=== PATIENT | female | born 1940 | race Two or more races ===

== ENCOUNTER 2025-07-25 03:19 | Emergency (ER) | payer MEDICARE, SELFPAY ==
[2025-07-25] VITALS (8 sets, daily range): BP systolic 129–169; BP diastolic 65–105; PULSE 75–101; RESP 16–28; TEMP 36.3–37; O2SAT 98–100; BMI 21.4
--- NOTE | 2025-07-25 03:35 | XR_ITS ---
EXAMINATION: AP chest single view TECHNIQUE: AP portable upright chest single view Date and time: July 25, 2025, 0423 hours INDICATION: Shortness of breath chest pain beginning today FINDINGS: No significant cardiac enlargement Mild vascular congestion Prominent osteopenia No lobar pneumonia IMPRESSION: Mild vascular congestion
--- NOTE | 2025-07-25 03:36 | EKG_ITS ---
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
--- NOTE | 2025-07-25 03:38 | PD.EDSOB ---
ED SOB =RME/HPI General Chief Complaint: Shortness of Breath/Dyspnea Stated Complaint: DIFFICULTY BREATHING Time Seen by Provider: 07/25/25 03:34 Arrival date/time: 07/25/25 03:19 RME / HPI RME / HPI Narrative: DR. 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 Patient underwent breathing treatment en route but reports no improvement. Denies fever and chills. Patient is currently on Prednisone. Denies tobacco and alcohol use. Also denies history of depression, DM, and HTN. No allergies to medications reported. Related Data Allergies Allergy/AdvReac Type Severity Reaction Status Date / Time No Known Allergies Allergy Verified 07/25/25 04:11 Review of Systems Review of Systems Systems Reviewed: All systems reviewed, normal except as documented Past Medical History Past Medical History RESPIRATORY: Positive Chronic Obstructive Pulmonary Disease (COPD) MUSCULOSKELETAL: Positive Rheumatoid Arthritis ED Exam Narrative Physical exam: GEN. APPEARANCE: The patient is alert awake oriented X-3 dyspneic, tremor, short of breath with cough. Patient has good eye contact. Patient is cooperative. VITALS: All vitals were reviewed and the pulse ox is 100% on O2 on RA which is normal according to my interpretation. HEENT: Normocephalic, atraumatic. Pupils are equal and reactive. Oral mucosa is moist. Patent Nares NECK: Supple, nontender, no thyromegaly, no meningismus, no JVD CHEST: Symmetrical, atraumatic, and with equal expansion , Nontender on palpation no deformity and no crepitus. CARDIOVASCULAR: Heart regular rhythm no murmur or gallop rub or extra beats. LUNGS: Clear to auscultation bilaterally with symmetrical chest rise. No laboring tachypnea or wheezing. No intercostal subcostal retraction. No rales and no rhonchi. ABDOMEN: Soft, flat, nontender to palpation, no guarding or rebound tenderness. There are no abnormal masses palpated. Active and normal bowel sounds. EXTREMITIES: Nontender. No edema. No cyanosis. Patient is able to move all 4 extremities well, with full ROM and good CSM. SKIN: Warm and dry, no jaundice or rashes noted. MUSCULOSKELETAL: No lumbar or midline bony tenderness. There is no CVA tenderness. No paraspinal muscle spasm or tenderness. NEURO: GCS is 15, PNS and GAME SHOW HOST appear grossly intact. PSYCHIATRIC: Patient is in normal mood and affect. Course Course Course Narrative: 0600: Care assumed by Dr. Little (emergency physician). Past medical, surgical, social and family history reviewed. Vitals and home medications reviewed. Results and treatment plan discussed. They will assume the care of the patient at this time and will follow the patient, pending chest CT. Quality Measures none Orders Category Date Time Status Bedside COVID-19 Antigen Test NOW Care 07/25/25 03:35 Completed Bedside Influenza A&B Antigen Test NOW Care 07/25/25 03:[address] Screening NOW Care 07/25/25 06:09 Completed EKG (ED ONLY) *Do not use* NOW Care 07/25/25 03:36 Completed Referral - Sales Correspondent Stat Cons 07/25/25 08:[address] angio chest Stat Exams 07/25/25 06:09 Completed CXR [XR chest 1V] Stat Exams 07/25/25 03:35 Completed EKG (ED Only) Stat Exams 07/25/25 03:36 Draft BNP [B-Type Natriuretic Peptide] Stat Lab 07/25/25 04:25 Completed CBC Stat Lab 07/25/25 04:25 Completed CMP [Comprehensive Metabolic Panel] Stat Lab 07/25/25 04:25 Completed INR [Prothrombin Time with INR] Stat Lab 07/25/25 04:25 Completed Troponin I Stat Lab 07/25/25 04:25 Completed Albuterol/Ipratr Rt Anahy [Duoneb Rt Anahy] Med 07/25/25 03:36 Discontinued 3 ml INH X1 ONE MethylPREDNISolone.* [SoluMEDROL Inj] Med 07/25/25 03:35 Discontinued 125 mg IVP X1 ONE Potassium Chloride [K-Dur] Med 07/25/25 06:10 Discontinued 40 meq PO X1 ONE Vital Signs Vital signs: Vital Signs Temperature 97.4 F 07/25/25 03:21 Pulse Rate 86 07/25/25 03:21 Respiratory Rate 18 07/25/25 03:21 Blood Pressure 140/105 H 07/25/25 03:21 Pulse Oximetry (%) 98 07/25/25 03:21 Oxygen Delivery Method Room Air 07/25/25 03:21 Shortness of Breath / Dyspnea MDM Narrative MDM Narrative:: Scribe Attestation: I, Emily Huerta, am scribing for and in the presence of Dr. Skelton. Provider Notation: Although this document has been carefully reviewed, there may still be some phonetic and other typographical errors. These errors are purely grammatical due to imperfections in the software program and should not be construed in any way to compromise the substance of the patient's medical care during this visit. Patient is an 84-year-old female with medical history notable for COPD, rheumatoid arthritis is in emerged from concerns for acute onset shortness of breath and cough. Vital signs and exam as listed. Concern for ACS arrhythmia electrolyte abnormality pneumonia viral syndrome COPD exacerbation among others. Patient without any lower extremity edema, no hemoptysis, patient is not hypoxic nor tachycardic, less likely pulmonary embolus. Ordered labs EKG chest x-ray. Offered medication for symptom relief. At this time my shift has ended and I have transitioned care to Dr. Little. Patient is pending work up and safe dispo. Patient data External records reviewed:: [facility] previous records (No prior ED records available for review.) and EMS form Clinical information provided by:: patient and EMS Social determinants that could affect healthcare access:: none Patient has the following chronic illnesses:: RA, COPD How is presenting disease/condition affected by chronic disease/condition?: exacerbated by Evaluation data The following diagnostics were reviewed and interpreted by me:: lab results, radiology exam(s) and EKG tracing(s) (EKG done at xxxx, bpm, normal intervals, non-specific T-wave changes, not a cardiac alert. - Interpreted by Dr. Areli Skelton.) Lab and/or radiology exams considered but not ordered:: None Interpretation Summary: RADIOLOGY Chest X-Ray: Pending official radiology report. Chest CT: Pending official radiology report. Medications / Prescriptions Medications or Prescriptions considered but not ordered:: None Medication administrations:: Medication Administration History Discontinued Medications Albuterol/Ipratropium (Albuterol/Ipratropium (Duoneb) Rt Anahy 3 Ml Nebu) 3 ml INH X1 ONE Stop: 07/25/25 03:37 Last Admin: 07/25/25 04:44 Dose: 3 ml Documented By: ISABEL Methylprednisolone Sodium Succinate (Methylprednisolone Sod Succ 62.5 Mg/Ml 2ml Vial) 125 mg IVP X1 ONE Stop: 07/25/25 03:36 Last Admin: 07/25/25 04:38 Dose: 125 mg Documented By: EFFIE Potassium Chloride (Potassium Chloride 20 Meq Tabcr) 40 meq PO X1 ONE Stop: 07/25/25 06:11 Last Admin: 07/25/25 06:58 Dose: 40 meq Documented By: EFFIE See above if any Consultations Consultation(s) initiated? (list below): No Diagnosis Shortness of Breath Differential Diagnosis: congestive heart failure, community acquired pneumonia and pulmonary embolism Most likely diagnosis given after review of the tests above:: Cough, Breath shortness, Acute exacerbation of chronic obstructive pulmonary disease Admission Indicated Admission indicated?: not indicated Explain why admission is indicated or not indicated:: Pending chest CT. Admission Request Was there a request for admission?: No Disposition Plan Disposition Plan: other (specify) (Signed out to Dr. Little at 6 AM.) Discharge Plan Plan Patient Disposition: [facility] Facility Pt Being Transferred to: [facility] Service Needed for Transfer: Vascular Surgery Patient condition on transfer: Stable Prescriptions/Referrals Referrals: No Primary/Family,Physician [Primary Care Provider] - In 1 week Problem List Clinical Impression: Cough, Breath shortness, Acute exacerbation of chronic obstructive pulmonary disease, Aortic aneurysm, thoracic Patient/Caregiver Discharge Instructions Discharge Activity: walk with walker only Print Language: Swazi Stand Alone Forms: Yvonne Award Info., Patient Portal Info Letter
[2025-07-25] MEDS: MethylPREDNISolone SOD SUCC 62.5 MG/ML 2ML VIAL 125 MG IVP (04:38)
[2025-07-25] MEDS: ALBUTEROL/IPRATROPIUM (Duoneb) RT SOL 3 ML NEBU INH (04:44)
[2025-07-25 04:47] LABS: Basophils # (Auto) 0.1 Thou/mm3 (0.0-0.2); Basophils % (Auto) 1 % (0-2.5); Eosinophils # (Auto) 0.1 Thou/mm3 (0.0-0.5); Eosinophils % (Auto) 1 % (0-10); Hematocrit 36.5 % (36.0-46.0); Hemoglobin 12.8 g/dL (12.0-16.0); Immature Granulocytes Auto 0.01 Thou/mm3 (0.00-0.00); Lymphocytes # (Auto) 2.1 Thou/mm3 (1.0-4.8); Lymphocytes % (Auto) 34 % (10-50); Mean Corpuscular HGB Conc 35.1 g/dl (31.0-37.0); Mean Corpuscular Hemoglobin 32.1 pg (25.0-35.0); Mean Corpuscular Volume 92 fL (80-100); Monocytes # (Auto) 0.2 Thou/mm3 (0.0-0.8); Monocytes % (Auto) 4 % (0-12); Neutrophils # (Auto) 3.8 Thou/mm3 (1.8-7.7); Neutrophils % (Auto) 61 % (37-80); Nucleated Red Blood Cell # 0.00 Thou/mm3 (0.00-0.00); Nucleated Red Blood Cell % 0 /100 WBC (0); Platelet Count 123 Thou/mm3 (140-440); RDW Standard Deviation 48.5 fL (36.4-46.3); Red Blood Count 3.99 Miln/mm3 (4.00-5.20); White Blood Count 6.3 Thou/mm3 (3.6-11.0)
[2025-07-25 05:08] LABS: INR 1.1 (0.9-1.3); Prothrombin Time 11.4 Seconds (9.0-12.2)
[2025-07-25 05:10] LABS: B-Type Natriuretic Peptide 48 pg/mL (0-100)
[2025-07-25 05:13] LABS: Alanine Aminotransferase 14 U/L (10-49); Albumin, Serum 4.1 gm/dL (3.4-4.8); Albumin/Globulin Ratio 1.5 (1.2-2.2); Alkaline Phosphatase 114 U/L (46-116); Anion Gap 13 (7-16); Aspartate Amino Transferase 25 U/L (0-34); BUN/Creatinine Ratio 17 Ratio (12-20); Bilirubin,Total 0.9 mg/dL (0.3-1.2); Blood Urea Nitrogen 17 mg/dL (9-23); Calcium 9.3 mg/dL (8.3-10.6); Calcium (Corrected) 9.3 mg/dL (8.5-10.1); Carbon Dioxide 25.8 mMol/L (20.0-31.0); Chloride 107 mMol/L (98-107); Creatinine (Component) 1.0 mg/dL (0.6-1.3); Estimated Creatinine Clearance 30.1 mL/min (>60); Globulin 2.8 gm/dL (2.3-3.5); Glucose 132 mg/dL (74-106); Osmolality,Calculated 294 (275-295); Potassium 2.9 mMol/L (3.4-5.1); Sodium 146 mMol/L (136-145); Total Protein 6.9 gm/dL (5.7-8.2); Troponin I < 0.020 ng/mL (0.0-0.045); eGFR 56 See Note
--- NOTE | 2025-07-25 06:09 | XR_ITS ---
Examination: CTA chest with intravenous contrast 2-D reconstructions 3-D reconstructions, vascular Date and time of exam: July 25, 2025, 0632 hours INDICATIONS: Shortness of breath chest pain today CTDI: vol (mGy) 6.78 DLP: (mGycm) 154 Technique: Multiple axial sections of the thorax have been obtained. 3 mm slice thickness, from below the hemidiaphragms to above the apices of the lungs. Mediastinal and lung density settings have been obtained. 2-D sagittal and coronal reconstructions. 3-D angiographic renderings, 3-D volume renderings, 3D post processing, vascular maximum intensity projections obtained. Contrast administered is 100 cc Isovue-370 intravenous. Low dose protocols were performed. One or more of the following dose reduction techniques were used; automated exposure control, adjustment of the mA and/or KV according to patient size, use of iterative reconstruction technique. Findings: AP dimension ascending thoracic aorta 25 mm Localized aneurysmal dilatation descending thoracic aorta 5.0 x 4.1 cm, axial image 133, axial image 131 suspicious for dissection versus large ulceration No pulmonary artery filling defects No pneumonia or pulmonary edema The visualized abdominal aorta is intact No visualized liver or splenic lesion Cholelithiasis No pancreatic or adrenal mass Severe kyphosis dorsal spine IMPRESSION: Aneurysmal dilatation of the descending thoracic aorta, transverse dimensions 5.0 x 4.1 cm, for instance image 131, suspicious for large ulceration of the descending thoracic aorta versus aortic dissection, this appearance is of concern for risk of aortic rupture, recommend assessment by cardiovascular surgery
--- NOTE | 2025-07-25 08:05 | PD.EDADDENDU ---
Emergency Room Addendum <Dori Little MD - Last Filed: 07/25/25 08:22> Addendum Narrative: 0804h: Patient signed out to me by Dr. oCte at 6:[address] angio. Patient had to come in for shortness of breath, tremors, cough for the past day with hypoxia noted on exam. Workup revealing CMP abnormalities including a potassium of 2.9, sodium 146, GFR 56. CBC unremarkable, INR normal, BNP and troponin normal, COVID swab was positive. CT angio is now back with the following concerning findings: Aneurysmal dilatation of the descending thoracic aorta, transverse dimensions 5.0 x 4.1 cm, for instance image 131, suspicious for large ulceration of the descending thoracic aorta versus aortic dissection, this appearance is of concern for risk of aortic rupture, recommend assessment by cardiovascular surgery. learning center coordinator order placed for transfer. 0820h: Spoke w [facility] regarding transfer. They will make calls. <Cynthia Bell - Last Filed: 07/25/25 10:55> Addendum Narrative: 0804h: Patient signed out to me by Dr. Cote at 6:[address] angio. Patient had to come in for shortness of breath, tremors, cough for the past day with hypoxia noted on exam. Workup revealing CMP abnormalities including a potassium of 2.9, sodium 146, GFR 56. CBC unremarkable, INR normal, BNP and troponin normal, COVID swab was positive. CT angio is now back with the following concerning findings: Aneurysmal dilatation of the descending thoracic aorta, transverse dimensions 5.0 x 4.1 cm, for instance image 131, suspicious for large ulceration of the descending thoracic aorta versus aortic dissection, this appearance is of concern for risk of aortic rupture, recommend assessment by cardiovascular surgery. learning center coordinator order placed for transfer. 0820h: Spoke w [facility] regarding transfer. They will make calls. 0900h: Patient has been accepted by vascular surgeon Dr. Hoyt at [facility]. 1055h: EMS here to transfer the patient.
--- NOTE | 2025-07-25 08:37 | PC.CC ---
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 Informed CN RITCHIE Garcia and [facility] Yaneli Addendum entered by Dewey Guillaume RN 07/25/25 10:10: 0955: pt agreeable to transfer packet w/ CD X1 given CN RITCHIE Garcia. bedside nurse Comfort iqbal. Addendum entered by Dewey Guillaume RN 07/25/25 09:33: 0928: Dr. Hoyt and Dr. Little completed peer to peer. Dr Hoyt accepted pt ED to ED. not a rupture, ambulance transport is appropriate. call report to [phone]. 9659: Received call back from Therese with Dr. Hoyt on the line for peer to peer. Original Note: 0816: called [facility] TC spoke to Therese to initiate transfer. Therese spoke to Dr. Little. She will review clinicals and present to cardio thoracic. Transfer packet w/ 1 CD created 0805: received written order for transfer for cardiothoracic surg from DR. Little. gathered clinicals and sent to [facility]
== END 2025-07-25 11:16 | disposition short-term general hospital (02) ==
PROVIDERS: Emergency Medicine; Emergency Provider Family Medicine
DX: I71.23 Aneurysm of the descending thoracic aorta, without rupture (principal); J44.1 Chronic obstructive pulmonary disease with (acute) exacerbation; I49.3 Ventricular premature depolarization; Z75.1 Person awaiting admission to adequate facility elsewhere
CPT/HCPCS: 36415; 71045; 71275; 80053; 83880; 84484; 85025; 85610; 87502; 87635; 93005; 94640; 96374; 99285; A4649; A9270; J2919; Q9967